=== PATIENT | male | born 1960 | race Caucasian/White ===

== ENCOUNTER 2020-07-27 06:20 | Day surgery (SDC) | payer OTHER, SELFPAY ==
[2020-07-23 12:15] VITALS: BMI 24.5
--- NOTE | 2020-07-26 08:32 | HO.ANESPROP2 ---
Documented by User: Thalia Cerna 07/26/20 08:33 HPI - Anesthesia Eval Consult details Narrative: 59yo M for Colonoscopy [facility] Past Medical History Medical History (Updated 07/27/20 @ 07:22 by Sharon Amaral) BPH (benign prostatic hyperplasia) Hepatic cyst History of diverticulitis Pancreatic cyst PUD (peptic ulcer disease) Renal cyst Surgical History Surgical History History of esophagogastroduodenoscopy (EGD) Hx of bilateral inguinal hernia repair Hx of colonoscopy Hx of hemorrhoidectomy Social History Social History Smoking Status: Former smoker Use of substances other than those prescribed or required for medical reasons: No Advance Directives: No Advance Directives Information Provided: Yes Meds Allergies Allergy/AdvReac Type Severity Reaction Status Date / Time No Known Allergies Allergy Verified 07/27/20 06:31 Home Medications Medication Instructions Recorded Confirmed Type acetaminophen [Tylenol] 650 mg PO Q6H PRN 07/23/20 07/23/20 History multivitamin 1 tab PO DAILY 07/23/20 07/23/20 History tamsulosin [Flomax] 0.4 mg PO DAILY 07/23/20 07/23/20 History Exam Exam Date and Time: July 26, 2020 0832 Height,Weight and Vital Signs: Height 5 ft 9 in Weight 75.296 kg Assessment and Plan Assessment Anesthesia Assessment: Chart Reviewed Documented by User: Sharon Amaral 07/27/20 07:27 [facility] Past Medical History Medical History (Updated 07/27/20 @ 07:22 by Sharon Amaral) BPH (benign prostatic hyperplasia) Hepatic cyst History of diverticulitis Pancreatic cyst PUD (peptic ulcer disease) Renal cyst Family History Family history of problems with anesthesia: No Surgical History Surgical History History of esophagogastroduodenoscopy (EGD) Hx of bilateral inguinal hernia repair Hx of colonoscopy Hx of hemorrhoidectomy History of Problems with Anesthesia: No Social History Social History Smoking Status: Former smoker Use of substances other than those prescribed or required for medical reasons: No Advance Directives: No Advance Directives Information Provided: Yes Meds Allergies Allergy/AdvReac Type Severity Reaction Status Date / Time No Known Allergies Allergy Verified 07/27/20 06:31 Home Medications Medication Instructions Recorded Confirmed Type acetaminophen [Tylenol] 650 mg PO Q6H PRN 07/23/20 07/23/20 History multivitamin 1 tab PO DAILY 07/23/20 07/23/20 History tamsulosin [Flomax] 0.4 mg PO DAILY 07/23/20 07/23/20 History Exam Height,Weight and Vital Signs: Vital Signs Temp Pulse Resp BP Pulse Ox 07/27/20 06:40 96.9 F 71 16 114/73 95 Airway Mallampati Class: III (Small mouth opening) TM Dist: >3cm Neck ROM: Full (Left rotator cuff tear with pain left side of neck) Loose/Missing/Broken Teeth: No Heart: RRR Lungs: CTAB Assessment and Plan Assessment Anesthesia Assessment: Anesthesia Plan Discussed and Chart Reviewed Final Anesthetic Review NPO: Yes ASA Class: II Final Preanesthetic Review: No Changes in Pt Med Stat, Meds/Allgs Chart Reviewed, Consent Obtained/Reviewed and Anes Risks/Benef Reviewed Patient Risk: Low Assessment/Block/Sedation in SS: Assess/Block/Sedation-SS Anesthetic Plan Anesthetic Plan: MAC: Disposition: Standard PACU
[2020-07-27 06:40] VITALS: BP 114/73; PULSE 71; RESP 16; TEMP 36.1; O2SAT 95
[2020-07-27] MEDS: Lactated Ringers 1,000 ML 100 ML IVCONT (06:55)
[2020-07-27 08:22] VITALS: BP 118/69; PULSE 74; RESP 16; TEMP 36.2; O2SAT 99
--- NOTE | 2020-07-27 08:27 | PM.OP ---
Brief Operative Note Date of Service: 07/27/20 Pre-op diagnosis: Screening Post-op diagnosis: other (Diverticulosis, Internal/External hemorrhoids) Procedure: Colonoscopy to cecum and TI Surgeon: Barry Hayden Anesthesia: MAC Estimated blood loss (mL): 0 Pathology: none sent Condition: stable Disposition: PACU
[2020-07-27 08:39] VITALS: BP 99/68; PULSE 58; RESP 16; TEMP 36.2; O2SAT 100
--- NOTE | 2020-07-27 08:48 | OP_ITS ---
SURGEON: Barry Hayden MD INDICATIONS: The patient presents for evaluation of colorectal cancer screening and family history of colon cancer. Full consent was obtained from him for this, including risks of bleeding and perforation. PREOPERATIVE DIAGNOSIS: POSTOPERATIVE DIAGNOSIS: PROCEDURE PERFORMED: Colonoscopy to cecum and terminal ileum. ESTIMATED BLOOD LOSS: COMPLICATIONS: ANESTHESIA: Monitored anesthesia care. ASSISTANTS: SPECIMENS: PREOPERATIVE DIAGNOSES: Colorectal cancer screening and family history of colon cancer. POSTOPERATIVE DIAGNOSES: Colorectal cancer screening and family history of colon cancer, diverticulosis, and internal and external hemorrhoids. DESCRIPTION OF PROCEDURE: The patient was placed in the left lateral decubitus position. The digital rectal exam revealed no abnormalities other than some external hemorrhoidal tissue. The Olympus video pediatric colonoscope was entered into the rectum, advanced easily to the cecum. Once in the cecum, I did identify normal-appearing cecal pouch with appendiceal orifice and a normal-appearing ileocecal valve. The terminal ileum was cannulated and appeared normal. Scope withdrawn back in the colon. The entire cecum and ileocecal valve appeared normal. The scope was slowly withdrawn assessing all mucosal surfaces carefully. Preparation was excellent. I did not visualize any sign of polyps, colitis, nor angiodysplasia. There was a moderate amount of sigmoid diverticulosis with associated edema and erythema in different areas within the mucosa. However, there was no sign of any mass nor stricture. Once in the rectum, scope was retroflexed visualizing some minimal hemorrhoidal tissue as well as scarring from previous hemorrhoid surgery. The rectal mucosa appeared normal. The scope was straightened and withdrawn from the patient. He tolerated procedure well and was returned to recovery area in stable condition. IMPRESSION: 1. Diverticulosis. 2. Internal and external hemorrhoids. PLAN: Given his family history of his mother having had colon cancer in her early 60s, I would recommend a followup colonoscopy in 5 years for further screening. He was advised to continue his regimen of fiber supplements to try to prevent constipation. If things are stable, he will see me on a p.r.n. basis. MD BRIA Sharpe/PAPA / [phone] MTDD
--- NOTE | 2020-07-27 09:08 | HO.POSTANES ---
Post Anesthesia Evaluation Post Anesthesia Evaluation Vital Signs: Vital Signs Temp Pulse Resp BP Pulse Ox 07/27/20 08:39 97.2 F 58 16 99/68 100 07/27/20 08:22 97.2 F 74 16 118/69 99 07/27/20 06:40 96.9 F 71 16 114/73 95 Anesthesia: Monitored Mental Status: Awake Pain Control: Satisfactory Nausea/Vomiting: None Hydration: Adequate Anesthesia-Related Issues: No Anes. Related Issues
== END 2020-07-27 09:07 | disposition home or self-care (01) ==
PROVIDERS: PCP Internal Medicine; Visit Provider Internal Medicine
PROC: 0DJD8ZZ Inspection of Lower Intestinal Tract, Via Natural or Artificial Opening Endoscopic (ICD-10-PCS; CPT 45378; principal; 2020-07-27 07:30)
DX: Z12.11 Encounter for screening for malignant neoplasm of colon (principal); Z80.0 Family history of malignant neoplasm of digestive organs; K57.30 Diverticulosis of large intestine without perforation or abscess without bleeding; K64.8 Other hemorrhoids; K64.4 Residual hemorrhoidal skin tags; N40.0 Benign prostatic hyperplasia without lower urinary tract symptoms; K86.2 Cyst of pancreas; K76.89 Other specified diseases of liver; N28.1 Cyst of kidney, acquired; Z87.11 Personal history of peptic ulcer disease; Z87.891 Personal history of nicotine dependence
CPT/HCPCS: 45378